=== PATIENT | male | born 1985 | race Caucasian/White ===

== ENCOUNTER 2018-06-17 21:53 | Inpatient (IN) ==
--- NOTE | 2018-06-17 21:59 | Emergency Department Note ---
Disposition Clinical Impression: Cellulitis, Hx of deep venous thrombosis Disposition: Admitted As Inpatient Condition: Fair Forms: ED Satisfaction Letter Time of Disposition: 22:12 (haile [facility]) Skin/Abscess/FB HPI Chief complaint: ED Skin/Abscess/Foreign Body Stated complaint: right leg cellulitus Time Seen by Provider: 06/17/18 21:54 Source: patient Mode of arrival: ambulatory Limitations: no limitations Nursing Notes Reviewed: Yes Vital Signs Reviewed: Yes HPI Narrative: Right lower leg swelling and edema history of a DVT in the past presents to the emergency room for the red hot swollen right leg concern for DVT versus cellulitis patient states a full with weightbearing does not seem to bother him when he keeps it up and elevated patient denies numbness tingling weakness or loss of sensation denies any calf pain or tenderness any swelling or edema to the left leg all pain and swelling is localizing in the right leg at this time denies though any recent weight gain weight loss or any new trauma denies any rashes lesions as a chest pain chest pressure palpitations cough cold of flulike symptoms all systems have been reviewed and are otherwise negative Patient is already been seen at a local urgent care was placed on Keflex and Bactrim and this showed failed outpatient therapy for the treatment management of this rash swelling and edema the inner aspect of his right lower extremity he does have a history of DVT but is not currently on any medications Pt Subjective Complaint: lesion Onset (ago): day(s) Tetanus Up to Date: yes Location: [facility] Severity: severe Severity scale (1-10): 9 Quality: aching Consistency: constant Improves with: other (Improved initially with antibiotic) Worsens with: immobilization, palpation, movement Context: other (History of DVT history of cellulitis) Associated symptoms: Reports: fever. Denies: chills, rigors, itching, nausea, vomiting, malaise, arthralgias, myalgias, cough, shortness of breath Treatments prior to arrival: antibiotic Home Medications Medication Instructions Recorded Confirmed Sulfamethoxazole/Trimeth DS 1 each PO BID 06/17/18 06/17/18 [Bactrim DS] cephALEXin [Keflex] 500 mg PO BID 06/17/18 06/17/18 Allergies Allergy/AdvReac Type Severity Reaction Status Date / Time No Known Allergies Allergy Verified 07/12/17 21:30 All systems ED: reviewed and negative except as stated. Review of Systems: As Per HPI Constitutional: Denies: fever, chills, weakness Eyes: Denies: eye pain, eye discharge ENT ED: Denies: ear pain, throat pain Cardiovascular: Denies: chest pain Respiratory: Denies: cough, dyspnea Gastrointestinal: Denies: abdominal pain, nausea, vomiting Genitourinary: Denies: urgency, dysuria, frequency Musculoskeletal: Reports: joint swelling, arthralgia, myalgia. Denies: back pain, neck pain Integumentary: Reports: lesions Neurological: Denies: headache, weakness Psychiatric: Denies: anxiety Endocrine: Denies: fatigue Hematological/Lymphatic: Denies: easy bleeding Allergic/Immunologic: Denies: facial swelling Past Medical History - Past Medical History Attestation: Yes The following information was validated with the patient. Source: patient, old records reviewed, nursing notes reviewed Medical history: Reports: no medical history Surgical history: Reports: no surgical history Psychiatric history: Reports: no psych history - Social History Smoking Status: Current every day smoker Smokeless Tobacco Status: Yes Alcohol use: Reports: none Drug use: Reports: none Physical Exam - General Limitations: no limitations General appearance: alert, in no apparent distress - Head Head exam: atraumatic, normocephalic, normal inspection - Eye Eye exam: Present: normal appearance, PERRL, EOMI - ENT ENT exam: normal exam, normal oropharynx, mucous membranes moist, TM's normal bilaterally, normal external ear exam - Neck Neck exam: Present: normal inspection, full ROM, trachea midline - Chest Chest inspection: Present: normal inspection, symmetric chest wall rise - Respiratory Respiratory exam: Present: normal lung sounds bilaterally - Cardiovascular Cardiovascular exam: Present: regular rate, normal rhythm, normal heart sounds - Abdominal Exam Abdominal exam: Present: soft, Non-Tender, normal bowel sounds. Absent: tenderness, distention, guarding, rebound, rigidity, mass, pulsatile mass - Expanded Upper Extremity Exam Shoulder exam: Present: normal inspection, full ROM Arm exam: Present: normal inspection, full ROM Elbow exam: Present: normal inspection, full ROM Forearm/Wrist exam: Present: normal inspection, full ROM Hand exam: Present: normal inspection, full ROM Neurosensory exam: Normal: radial nerve, ulnar nerve Vascular exam: Normal: capillary refill, radial pulse, ulnar pulse - Expanded Lower Extremity Exam Hip/Pelvis exam: Present: normal inspection, full ROM Upper leg exam: Present: normal inspection, full ROM, tenderness, swelling, erythema 1 - Red streaking all the way up the leg 2 - [place] edema the leg Knee exam: Present: normal inspection, full ROM, tenderness, swelling, erythema Lower leg exam: Present: normal inspection, full ROM, tenderness, swelling, erythema Ankle exam: Present: normal inspection, full ROM, tenderness, swelling, erythema Foot/toe exam: Present: normal inspection, full ROM, tenderness, swelling, erythema (Right leg medial aspect tender hot or inflamed) Neurovascular/Tendon exam: Present: normal capillary refill, normal fine/light touch Gait: observed and normal Course Course Narrative: Patient was seen and evaluated examinations performed patient was started on IV antibiotics had septic workup performed here in the event that he was at risk for this as well as DVT prophylaxis until we can get a Doppler the a.m. I spoke with Dr. March he is agreed for admission to his services patient was transferred to the floor stable condition Vital Signs Temperature 98.1 F 06/17/18 21:55 Pulse Rate 86 06/17/18 21:55 Respiratory Rate 18 06/17/18 21:55 Blood Pressure 125/76 06/17/18 21:55 O2 Sat by Pulse Oximetry 96 06/17/18 21:55 Temperature 98.1 F 06/17/18 21:55 Pulse Rate 86 06/17/18 21:55 Respiratory Rate 18 06/17/18 21:55 Blood Pressure 125/76 06/17/18 21:55 O2 Sat by Pulse Oximetry 96 06/17/18 21:55 Oxygen Delivery Oxygen Delivery Room Air Skin/Abscess/Foreign Body - Differential Diagnosis Likely: cellulitis - Medical Records Medical records reviewed: Yes I reviewed the patient's medical records. - Lab Data Lab results reviewed: Yes I reviewed the patient's lab results. - EKG Data EKG attestation: Yes I reviewed and interpreted this EKG. EKG results narrative: Sinus tach prolonged DE left ventricular hypertrophy ST changes most likely consistent with rate dependency heart rate 149 DE 402 rest 112 QTC 310 axis XCIV with calculation of the DE by calipers it appears to be more consistent with around 200-220 Critical Care Time Critical Care Time: Yes Total Critical Care Time: 20 Attestation: High probability clinically significant life-threatening deterioration is patient's condition Separately reportable procedures as a risk of potential venous thrombosis as well cellulitis with risk of sepsis
[2018-06-17] MEDS ORDERED: Ondansetron 4 MG/2 ML VIAL IVP ONE (22:04)
[2018-06-17] MEDS ORDERED: Vancomycin 1,000 MG in D5% in Water 250 ML IVPB ONE (22:04)
[2018-06-17] MEDS ORDERED: Ampicillin/Sulbactam 3,000 MG in 0.9 % Sodium Chloride Mini Bag 100 ML IVPB ONE (22:04)
[2018-06-17] MEDS ORDERED: Ketorolac 30 MG/ML VIAL IVP ONE (22:04)
[2018-06-17] MEDS ORDERED: Clindamycin 600 MG/50 ML 600 MG/50 ML IV.SOLN IVPB ONE (22:04)
[2018-06-17] MEDS ORDERED: *HR* Enoxaparin 150 MG/ML SYRINGE SQ ONE (22:15)
[2018-06-17] MEDS ORDERED: 0.9 % Sodium Chloride 1,000 ML IVC SCH (22:15)
[2018-06-17] MEDS ORDERED: *HR* Metoprolol 5 MG/5 ML VIAL IVP ONE (23:11)
[2018-06-18] MEDS: 0.9 % Sodium Chloride 1,000 ML IVC SCH ×6 (00:21→21:05)
[2018-06-18 00:26] LABS: Basophils # 0.1 K/mcL (0.0-0.2); Basophils % 0.7 %; Eosinophils # 0.2 K/mcL (0.0-0.6); Eosinophils % 1.8 %; Hematocrit 41.1 % (37.5-50.1); Hemoglobin 14.4 g/dL (12.9-16.9); Immature Granulocytes % 1.9 % (0-4); Lymphocytes % 25.2 %; Mean Corpuscular Hemoglobin 29.9 pg (28.0-33.3); Mean Corpuscular Volume 85.3 fL (83.0-100.0); Mean Platelet Volume 9.6 fL (9.4-12.4); Monocytes # 1.4 K/mcL (0.0-1.3); Monocytes % 11.5 %; Platelet Count 336 K/mcL (140-400); Red Blood Count 4.82 M/mcL (4.19-5.50); Red Cell Distribution Width 11.9 % (11.5-14.5); Segmented Neutrophils % 58.9 %
[2018-06-18 00:34] LABS: INR 1.1; Prothrombin Time 12.6 Seconds (9.4-12.1)
[2018-06-18 00:36] LABS: Activated Partial Thrombo Time 31.8 Seconds (26.0-36.0)
[2018-06-18 00:42] LABS: Alanine Aminotransferase 43 Units/L (7-52); Albumin 3.4 g/dL (3.5-5.7); Alkaline Phosphatase 45 Units/L (34-104); Aspartate Amino Transferase 37 Units/L (13-39); BUN/Creatinine Ratio 12 (6-26); Bilirubin,Total 0.5 mg/dL (0.3-1.0); Blood Urea Nitrogen 9 mg/dL (6-20); Calcium 8.2 mg/dL (8.6-10.3); Carbon Dioxide 26 mEq/L (23-29); Chloride 100 mEq/L (98-107); Globulin 3.3 g/dL (2.4-3.5); Glucose 97 mg/dL (70-105); Osmolality,Calculated 279 (280-300); Potassium 3.2 mEq/L (3.5-5.1); Sodium 135 mEq/L (136-145); Total Protein 6.7 g/dL (6.4-8.9); eGFR For Non-African Americans > 60 (> 60)
[2018-06-18] MEDS ORDERED: Ibuprofen 400 MG TABLET PO PRN (00:45)
[2018-06-18] MEDS ORDERED: Vancomycin 1,750 MG in 0.9 % Sodium Chloride 250 ML IVPB SCH (00:45)
[2018-06-18] MEDS ORDERED: Ondansetron 4 MG/2 ML VIAL IVP PRN (00:45)
[2018-06-18] MEDS ORDERED: Vancomycin 1,000 MG in D5% in Water 250 ML IVPB ONE (00:45)
[2018-06-18] MEDS ORDERED: Naloxone 0.4 MG/ML INJ IVP PRN (00:45)
[2018-06-18] MEDS: *HR* HYDROcodone/Acet 5/325 mg TABLET PO PRN ×3 (01:07→17:16)
[2018-06-18] MEDS: Ampicillin/Sulbactam 3,000 MG in 0.9 % Sodium Chloride Mini Bag 100 ML IVPB SCH ×3 (05:38→19:41)
[2018-06-18 07:29] LABS: Basophils # 0.1 K/mcL (0.0-0.2); Basophils % 0.8 %; Eosinophils # 0.3 K/mcL (0.0-0.6); Eosinophils % 3.1 %; Hematocrit 38.8 % (37.5-50.1); Hemoglobin 13.2 g/dL (12.9-16.9); Immature Granulocytes % 1.5 % (0-4); Lymphocytes # 2.9 K/mcL (0.6-4.6); Lymphocytes % 32.3 %; Mean Corpuscular Hemoglobin 29.7 pg (28.0-33.3); Mean Corpuscular Volume 87.2 fL (83.0-100.0); Mean Platelet Volume 9.5 fL (9.4-12.4); Monocytes % 11.3 %; Neutrophils # 4.6 K/mcL (1.6-8.9); Platelet Count 323 K/mcL (140-400); Red Blood Count 4.45 M/mcL (4.19-5.50); Red Cell Distribution Width 12.2 % (11.5-14.5)
[2018-06-18 10:04] LABS: BUN/Creatinine Ratio 13 (6-26); Blood Urea Nitrogen 8 mg/dL (6-20); Calcium 7.5 mg/dL (8.6-10.3); Carbon Dioxide 25 mEq/L (23-29); Chloride 105 mEq/L (98-107); Glucose 114 mg/dL (70-105); Osmolality,Calculated 279 (280-300); Potassium 3.5 mEq/L (3.5-5.1); Sodium 135 mEq/L (136-145); eGFR For Non-African Americans > 60 (> 60)
--- NOTE | 2018-06-18 16:08 | Internal Med History&Physical ---
Date of Encounter: 06/18/18 Time of Encounter: 15:40 Assessment and Plan (1) Cellulitis Current visit: Yes Status: Acute He has been started on IV Unasyn and vancomycin. Lactobacillus will be added. Qualifiers: Site of cellulitis: extremity Site of cellulitis of extremity: lower extremity Laterality: right Qualified Code(s): L03.115 - Cellulitis of right lower limb (2) Tachycardia Current visit: Yes Status: Acute EKG in emergency room showed heart rate 149. Question if PSVT or less likely atrial flutter with 2:1 conduction present. Flutter waves are not seen. He reports seeing a car tracer in the past with multiple stress tests and a Holter monitor done. He reports no definitive pathology has been found. No reports are seen in archived [facility] records. Internal Medicine - H&P: HPI Chief complaint: Right leg redness and swelling Admitted From: Emergency Dept Plans for Post Hospital Care: Home History of present illness: Mr. Beard is a 32 year old male who came to emergency room stating he had approximately 5 day history of redness and swelling in his right leg. He reports he did not "feel well" on June 10. He thought he might be getting the flu so started Tamiflu from a leftover prescription at home. The evening of June 12 he noticed his right leg red and swollen so went to a local urgent care the next day. He was diagnosed with cellulitis and placed on oral Keflex and Septra DS. He had persistent fevers and chills despite the antibiotic use so came to [facility] emergency room and was felt to have cellulitis with failed outpa tient treatment. He was admitted for IV antibiotic therapy. He had previous similar episode in December 2012. He denies any known injury to the right leg. He reports a DVT in the right leg approximately 6 years ago but has had no recurrent DVT or infection since 2013. Past Med Surg Social Fam HX - Past Medical History Medical history: no medical history Additional medical history: Hx of cellulitis in right leg Psychiatric history: no psych history - Past Surgical History Surgical History: orthopedic, other Additional surgical history: Left elbow surgery - Social History Smoking Status: Current every day smoker Packs per day: 1 Smokeless Tobacco Status: Yes Alcohol use: none Drug use: marijuana - Family History Brother Hx Family Endocrine Disorder: Yes (DM) Grandmother Living Status: Cause of : CA. Hx Family Cancer: Yes (Lung and Throat Ca.) Internal Medicine - H&P: Meds Sulfamethoxazole/Trimeth DS [Bactrim DS] 1 each PO BID 06/17/18 [History] cephALEXin [Keflex] 500 mg PO BID 06/17/18 [History] Allergy/AdvReac Type Severity Reaction Status Date / Time No Known Allergies Allergy Verified 07/12/17 21:30 All Systems PM: A 10-system review of systems was performed and is negative for pertinent findings except as documented above in the HPI. Review of systems: Gen.: His weight has increased from 104.326 kg December 2012 hospitalization to present weight of 122.47 kg. Cardiovascular: He denies hypertension [place] heart failure angina or pulmonary embolism. He reports right leg DVT approximately 6 years ago. Respiratory: He has smoked since age 22 never exceeding 1 pack per day. He does not use home oxygen and denies chronic lung disease GI: He denies disorders of his liver gallbladder or exocrine pancreas : Denies hematuria dysuria or kidney stones Neurologic: He denies large distribution strokes or seizures. Endocrine: He denies diabetes thyroid disease or hyperlipidemia Hematology/oncology: Denies blood disorders cancers or anemia Psychiatric: He denies anxiety depression or other mental health issues [place] skeletal: He denies arthritis gout or other bone joint or muscle disorders. - Constitutional Vitals: Temp Pulse Resp BP Pulse Ox 98.2 F 61 16 110/73 97 06/18/18 14:54 06/18/18 14:54 06/18/18 14:54 06/18/18 14:54 06/18/18 14:54 Exam: Gen.: He is a well-developed well-nourished male resting comfortably in bed who appears in no acute distress HEENT: Head is atraumatic and normocephalic. Eyes: EOMI. There is no scleral icterus. Mouth: Mucosa is moist. Neck: Supple and nontender. There is no thyromegaly or adenopathy noted. Heart: Regular without murmurs gallops or ectopics Lungs: No wheezes or crackles are heard. Abdomen: Soft and nontender. No masses or guarding are noted. Extremities: The right leg shows increased size and warmth compared to the left leg. There is erythema involving a large portion of the right lower leg with lymphangitic streaking noted on the medial anterior portion of the lower leg extending into the thigh. Dorsalis pedis and posttibial pulses are trace palpable in the leg. The left leg is unremarkable. Neurologic: Mental status: He is talkative and a good historian. Cranial nerves: Smile is symmetric. Forehead wrinkles bilaterally. Tongue protrudes midline. EOMI. Motor: There is no pronator drift. Cerebellar: Finger to nose is intact bilaterally. Skin: Warm and dry Internal Med - H&P Results - Labs CBC & Chem 7: 06/18/18 07:06 06/18/18 07:06 Labs: Short CBC 06/18/18 06/18/18 Range/Units 00:14 07:06 WBC 11.9 H 9.1 (4.3-11.1) K/mcL Hgb 14.4 13.2 (12.9-16.9) g/dL Hct 41.1 38.8 (37.5-50.1) % Plt Count 336 323 (140-400) K/mcL Neutrophils # 7.0 4.6 (1.6-8.9) K/mcL BMP 06/18/18 06/18/18 00:14 07:06 Sodium 135 L 135 L Potassium 3.2 L 3.5 Chloride 100 105 Carbon Dioxide 26 25 BUN 9 8 Creatinine 0.73 0.63 L Glucose 97 114 H Calcium 8.2 L 7.5 L Liver Function 06/18/18 Range/Units 00:14 Total Bilirubin 0.5 (0.3-1.0) mg/dL AST 37 (13-39) Units/L ALT 43 (7-52) Units/L Alkaline Phosphatase 45 (34-104) Units/L Albumin 3.4 L (3.5-5.7) g/dL
--- NOTE | 2018-06-18 16:58 | Electrocardiograph Report ---
[place] [id number] Test Date: 2018-06-17 Pat Name: J Carlos Beard Department: EDP-14 Room: [facility] Gender: M Solar Installation Technician: : 1985 Requested By: Gisela Grady Order Number: [id number] Reading MD: Michelle Dodd Measurements Intervals [place] Rate: 149 P: 0 [place]: 402 QRS: 94 QRSD: 112 T: -24 QT: 310 QTc: 489 Interpretive Statements Supraventricular tachycardia LVH with IVCD and secondary repol abnrm Electronically Signed On 06-18-2018 16:56:49 EDT by Michelle Dodd
[2018-06-18] MEDS: Lactobacillus 1 EACH CAP.SPRINK PO SCH (21:14)
[2018-06-19] MEDS: Ampicillin/Sulbactam 3,000 MG in 0.9 % Sodium Chloride Mini Bag 100 ML IVPB SCH ×3 (00:54→11:07)
[2018-06-19] MEDS: *HR* HYDROcodone/Acet 5/325 mg TABLET PO PRN ×2 (00:54→11:07)
[2018-06-19 05:25] LABS: Basophils # 0.1 K/mcL (0.0-0.2); Basophils % 0.8 %; Eosinophils # 0.3 K/mcL (0.0-0.6); Eosinophils % 3.6 %; Hematocrit 39.3 % (37.5-50.1); Hemoglobin 13.3 g/dL (12.9-16.9); Immature Granulocytes % 1.4 % (0-4); Lymphocytes # 2.6 K/mcL (0.6-4.6); Lymphocytes % 31.4 %; Mean Corpuscular HGB Conc 33.8 g/dL (31.6-35.5); Mean Corpuscular Hemoglobin 29.8 pg (28.0-33.3); Mean Corpuscular Volume 87.9 fL (83.0-100.0); Mean Platelet Volume 9.5 fL (9.4-12.4); Monocytes # 0.7 K/mcL (0.0-1.3); Monocytes % 8.6 %; Neutrophils # 4.5 K/mcL (1.6-8.9); Platelet Count 337 K/mcL (140-400); Red Blood Count 4.47 M/mcL (4.19-5.50); Red Cell Distribution Width 12.3 % (11.5-14.5); Segmented Neutrophils % 54.2 %
[2018-06-19 05:52] LABS: BUN/Creatinine Ratio 14 (6-26); Blood Urea Nitrogen 8 mg/dL (6-20); Calcium 8.2 mg/dL (8.6-10.3); Carbon Dioxide 26 mEq/L (23-29); Chloride 107 mEq/L (98-107); Glucose 102 mg/dL (70-105); Osmolality,Calculated 285 (280-300); Sodium 138 mEq/L (136-145); eGFR For Non-African Americans > 60 (> 60)
[2018-06-19 06:07] LABS: Thyroid Stimulating Hormone 1.871 mcIU/mL (0.340-5.600)
[2018-06-19] MEDS: Lactobacillus 1 EACH CAP.SPRINK PO SCH (11:07)
[2018-06-19 11:23] VITALS: BP 115/84
--- NOTE | 2018-06-19 12:05 | Discharge Summary ---
Orders not resulted at time of discharge: Pending orders 06/17/18 00:14 Culture,Blood [BC] Stat 06/17/18 16:50 ECG 12 lead ECG [ECG] Stat 06/19/18 14:00 Vancomycin,Trough Timed Date of Encounter: 06/19/18 Time of Encounter: 11:20 - Discharge Diagnosis (1) Cellulitis Priority: Primary Status: Acute Qualifiers: Site of cellulitis: extremity Site of cellulitis of extremity: lower extremity Laterality: right Qualified Code(s): L03.115 - Cellulitis of right lower limb (2) Tachycardia Priority: Secondary Status: Resolved Hospital course: Mr. Beard is a 32 year old male who came to emergency room stating he had approximately 5 day history of redness and swelling in his right leg. He reports he did not "feel well" on June 10. He thought he might be getting the flu so started Tamiflu from a leftover prescription at home. The evening of June 12 he noticed his right leg red and swollen so went to a local urgent care the next day. He was diagnosed with cellulitis and placed on oral Keflex and Septra DS. He had persistent fevers and chills despite the antibiotic use so came to [facility] emergency room and was felt to have cellulitis with failed outpatient treatment. He was admitted for IV antibiotic therapy. Initial orders were written by the emergency room physician. I saw him on June 18 and performed the history and physical. He was started on IV Unasyn with vancomycin. Lactobacillus was added. He had decrease in erythema and tenderness when I saw him the following day. He remained afebrile. Follow-up labs on June 19 showed WBC normal at 8.4 without left shift present. He wished to be discharged home. He will continue with Keflex and Septra DS as previously prescribed. Probiotic will be added. I encouraged him to keep his right foot elevated as much as possible. Tachycardia resolved shortly after admission and did not recur. I recommend his PCP refer him for further cardiac evaluation including possible EP studies since EKG in emergency room showed heart rate 149/m with PSVT or less likely atrial flutter with 2:1 conduction not excluded. He will follow with WILLY Peña CNP within 1 week. - Time Spent with Patient Total time spent providing and/or coordinating discharge services: - Discharge Medications Prescriptions: New Lactobacillus [Culturelle] 1 each PO BID #20 cap.[email or web address] Continue Sulfamethoxazole/Trimeth DS [Bactrim Ds] 1 each PO BID cephALEXin [Keflex] 500 mg PO BID Home Medications: Sulfamethoxazole/Trimeth DS [Bactrim Ds] 1 each PO BID 06/17/18 [History] cephALEXin [Keflex] 500 mg PO BID 06/17/18 [History] Lactobacillus [Culturelle] 1 each PO BID #20 cap.sprink 06/19/18 [Rx] Allergies/Adverse Reactions: Allergy/AdvReac Type Severity Reaction Status Date / Time No Known Allergies Allergy Verified 07/12/17 21:30 Date of admission: 06/18/18 18:52 Primary care physician: PCP NONE - Constitutional Vitals: Temp Pulse Resp BP Pulse Ox 97.8 F 57 17 115/84 99 06/19/18 11:22 06/19/18 11:22 06/19/18 11:22 06/19/18 11:22 06/19/18 11:22 - Patient Status Disposition: Home, Self-Care Condition: Fair - Discharge Instructions Follow Up With: Carloz Peña, [place] SCIENTIST [Advanced Practice Nurse] - 1 week - Diet and Activity Diet: advance to your usual diet
[2018-06-19] MEDS ORDERED: Aminoglycoside Consult 1 EACH MC ONE (14:00)
== END 2018-06-19 13:48 | disposition home or self-care (01) | DRG 603 ==
LOC: EMEROOPIK 21:53 → INPPIK 21:53
PROVIDERS: ADMIT Internal Medicine; ATTEND Internal Medicine

== ENCOUNTER 2021-05-19 19:10 | Observation (INO) ==
[2021-05-19] MEDS ORDERED: 0.9 % Sodium Chloride 1,000 ML IVC ONE (19:47)
[2021-05-19] MEDS ORDERED: Vancomycin 2,000 MG/520 ML IV.SOLN IVPB ONE (19:47)
[2021-05-19] MEDS ORDERED: *HR* Enoxaparin 120 MG/0.8 ML SYRINGE SQ STA (19:51)
[2021-05-19 20:16] LABS: Basophils # 0.1 K/mcL (0.0-0.2); Basophils % 0.5 %; Eosinophils % 0.1 %; Hematocrit 49.6 % (37.5-50.1); Immature Granulocytes % 0.9 % (0-4); Lymphocytes # 1.3 K/mcL (0.6-4.6); Lymphocytes % 6.7 %; Mean Corpuscular HGB Conc 34.3 g/dL (31.6-35.5); Mean Corpuscular Volume 84.5 fL (83.0-100.0); Mean Platelet Volume 9.6 fL (9.4-12.4); Monocytes # 1.7 K/mcL (0.0-1.3); Neutrophils # 15.8 K/mcL (1.6-8.9); Platelet Count 339 K/mcL (140-400); Red Blood Count 5.87 M/mcL (4.19-5.50); Red Cell Distribution Width 12.1 % (11.5-14.5); Segmented Neutrophils % 82.8 %; White Blood Count 19.1 K/mcL (4.3-11.1)
[2021-05-19 20:51] LABS: Albumin 4.1 g/dL (3.5-5.7); Albumin/Globulin Ratio 0.9 (1.1-2.2); Bilirubin,Direct 0.2 mg/dL (0.0-0.2); Bilirubin,Indirect 0.4 mg/dL (0.0-1.0); Bilirubin,Total 0.6 mg/dL (0.3-1.0); Calcium 9.9 mg/dL (8.6-10.3); Globulin 4.5 g/dL (2.4-3.5); Potassium 3.2 mEq/L (3.5-5.1); Total Protein 8.6 g/dL (6.4-8.9)
[2021-05-19] MEDS ORDERED: Potassium Chloride Elixir 20 MEQ/15 ML UDC PO ONE (21:03)
[2021-05-19] MEDS ORDERED: *HR* Adenosine 6 MG/2 ML VIAL IVP ONE (22:40)
[2021-05-19] MEDS: 0.9 % Sodium Chloride 1,000 ML IVC SCH (22:56)
[2021-05-20] MEDS: 0.9 % Sodium Chloride 1,000 ML IVC SCH ×5 (00:13→14:19)
[2021-05-20 03:55] LABS: Bilirubin,Urine Negative (Negative); Blood,Urine Negative (Negative); Clarity,Urine Clear (Clear); Color,Urine Yellow (Yellow); Glucose,Urine (UA) Normal (Normal); Ketones,Urine Negative (Negative); Leukocyte Esterase,Urine Negative (Negative); Nitrite,Urine Negative (Negative); Protein,Urine Trace mg/dL (Neg-Trace); Urobilinogen,Urine Normal (Normal)
[2021-05-20] MEDS ORDERED: Melatonin 3 MG TABLET PO PRN (04:26)
[2021-05-20] MEDS ORDERED: Naloxone 0.4 MG/ML INJ IVP PRN ×2 (04:26→09:52)
[2021-05-20] MEDS ORDERED: Acetaminophen 325 MG TABLET PO PRN (04:26)
[2021-05-20] MEDS ORDERED: *HR* Adenosine 6 MG/2 ML VIAL IVP PRN (04:26)
[2021-05-20] MEDS ORDERED: Sulfamethoxazole/Trimeth DS 1 EACH TABLET PO SCH (04:26)
[2021-05-20] MEDS ORDERED: MOM Conc 10 ML UD.LIQ PO PRN (04:26)
[2021-05-20] MEDS ORDERED: Ibuprofen 400 MG TABLET PO PRN (04:26)
[2021-05-20] MEDS ORDERED: Lactobacillus 1 EACH CAP.SPRINK PO SCH ×2 (04:26→09:00)
[2021-05-20] MEDS ORDERED: Vancomycin 1,750 MG in 0.9 % Sodium Chloride 250 ML IVPB SCH (04:26)
[2021-05-20] MEDS ORDERED: Ondansetron ODT 4 MG TAB.RAPDIS SL PRN (04:26)
[2021-05-20] MEDS ORDERED: Mag Hydrox/Al Hydrox/Simeth 30 ML UDC PO PRN (04:26)
[2021-05-20 04:32] LABS: Amphetamine Screen,Urine Positive ng/mL (Cutoff=1000); Barbiturate Screen,Urine Negative ng/mL (Cutoff=200); Benzodiazepines Screen,Urine Negative ng/mL (Cutoff=200); Cannabinoid Screen,Urine Positive ng/mL (Cutoff = 50); Cocaine Screen,Urine Negative ng/mL (Cutoff= 300); Opiate Screen,Urine Negative ng/mL (Cutoff=300); Phencyclidine Screen,Urine Negative ng/mL (Cutoff=25)
[2021-05-20] MEDS ORDERED: Enoxaparin Weight Dosing SQ SCH (06:00)
[2021-05-20] MEDS ORDERED: *HR* Enoxaparin 120 MG/0.8 ML SYRINGE SQ SCH ×2 (08:00)
[2021-05-20] MEDS ORDERED: Vancomycin 1,750 MG/517.5 ML IV.SOLN IVPB SCH (08:00)
[2021-05-20] MEDS ORDERED: Perflutren Lipid Microsphere 1.3 ML in 0.9 % Sodium Chloride 8.7 ML IVP PRN (09:40)
[2021-05-20] MEDS: Piperacillin/Tazobactam 3.375 GM in 0.9 % Sodium Chloride Mini Bag 100 ML IVPB SCH ×2 (09:40→16:12)
[2021-05-20] MEDS ORDERED: *HR* Heparin 5,000 UNIT/ML VIAL IVP PRN ×2 (10:57)
[2021-05-20] MEDS ORDERED: *HR* Heparin 5,000 UNIT/ML VIAL IVP ONE (10:57)
[2021-05-20] MEDS ORDERED: Heparin 25,000UNIT/250ML 1/2NS 25,000 UNIT/250 ML IV.SOLN IVC SCH (11:00)
[2021-05-20 11:55] LABS: Hematocrit 40.9 % (37.5-50.1); Hemoglobin 13.9 g/dL (12.9-16.9); Mean Corpuscular Volume 85.4 fL (83.0-100.0); Mean Platelet Volume 9.6 fL (9.4-12.4); Platelet Count 262 K/mcL (140-400); Red Blood Count 4.79 M/mcL (4.19-5.50); Red Cell Distribution Width 12.3 % (11.5-14.5)
[2021-05-20 12:06] LABS: Heparin anti-factor XA UFH 0.2 IU/mL (0.30-0.70); INR 1.4; Prothrombin Time 15.3 Seconds (9.4-12.1)
[2021-05-20] MEDS ORDERED: 0.9 % Sodium Chloride 1,000 ML IVC SCH (14:15)
[2021-05-20] MEDS ORDERED: *HR* Metoprolol 5 MG/5 ML VIAL IVP ONE (15:20)
[2021-05-20 17:34] VITALS: O2SAT 100
[2021-05-20 20:11] VITALS: BP 136/85; PULSE 101; RESP 16; TEMP 101
== END 2021-05-20 18:59 | disposition short-term general hospital (02) ==
LOC: EMEROOPIK 19:10 → INPPIK 19:10
PROVIDERS: ADMIT Family Medicine; ATTEND Family Medicine